=== PATIENT | male | born 1955 | race Caucasian/White ===

== ENCOUNTER 2023-06-18 12:01 | Outpatient (AMB) | payer MEDICARE, MEDICAID, SELFPAY ==
--- NOTE | 2023-06-18 13:56 | AM.OFFWIN_ITS ---
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 Reports left wrist pain and swelling. [facility] Social History Patient Tobacco Use Status: Never used Tobacco Review of Systems Const All systems reviewed & are unremarkable except as noted in HPI and below Physical Exam Vital Signs: Last Vital Signs Temp 97.6 F 06/18/23 14:01 Pulse 73 06/18/23 14:01 BP 122/72 06/18/23 14:01 Pulse Ox 96 06/18/23 14:01 Oxygen Delivery Method Room Air 06/18/23 14:01 BMI result Body Mass Index 37.6 Back/Spine/Pelvis Cervical Spine: normal cervical lordosis, cervical ROM normal and other (limited ROM on Neck due to pain) Extrem Right upper extremity: normal to inspection Left upper extremity: wrist (tenderness, limited ROM due to pain) and hand Details: normal capillary refill, neuromotor exam normal, neurosensory exam normal, tenderness and swelling Assessment & Plan Assessment & Plan (1) Left wrist pain: Code(s): M25.532 - Pain in left wrist Plan: - Xray to r/o Fx - NSAIDs for pain relief. - Alverto bandage and Wrist/hand Brace (2) Cervical muscle pain: Code(s): M54.2 - Cervicalgia Plan: - Chronic issue - F/u With PCP - Warm therapy - Recommended PT Orders: Orders XR wrist LT 2V Today M25.539 - Pain in unspecified wrist Coding Level of Care Code Est Pt Level 3 (56874) Diagnoses Left wrist pain M25.532 Cervical muscle pain M54.2 Time Spent (min) 15
[2023-06-18 14:01] VITALS: BP 122/72; PULSE 73; TEMP 36.4; O2SAT 96; BMI 37.6
== END 2023-06-18 16:16 | disposition home or self-care (01) ==
PROVIDERS: Visit Provider Nurse Practitioner Family
DX: M25.532 Pain in left wrist (principal); M54.2 Cervicalgia
CPT/HCPCS: 99213

== ENCOUNTER 2023-06-18 14:47 | Outpatient (REF) | payer MEDICARE, MEDICAID, SELFPAY ==
--- NOTE | ~2023-06-18 | XR_ITS ---
EXAMINATION: XR WRIST, LEFT CLINICAL INFORMATION: Wrist pain COMPARISON: None available. TECHNIQUE: PA, lateral, oblique, and scaphoid views of the left wrist. FINDINGS: There are marked degenerative changes present at the first CMC joint as well milder degenerative changes at the trapezium/trapezoid joint. Marked vascular calcifications are present. No fractures are seen. No chondrocalcinosis is present. 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 The possibility of the thenar hammer syndrome cannot be excluded. Please correlate with the clinical history.
== END 2023-06-18 14:48 | disposition home or self-care (01) ==
LOC: HO.HMGCX 14:47
PROVIDERS: PCP Internal Medicine; Visit Provider Nurse Practitioner Family
DX: M25.531 Pain in right wrist (principal)
CPT/HCPCS: 73100

== ENCOUNTER 2023-10-14 14:17 | Outpatient (AMB) | payer MEDICARE, SELFPAY ==
[2023-10-14 14:36] VITALS: BP 128/74; PULSE 75; TEMP 36.6; O2SAT 96; BMI 37.6
--- NOTE | 2023-10-14 14:36 | AM.OFFWIN_ITS ---
Intake Vital Signs 10/14/23 14:36 Height 5 ft 6 in Weight 233 lb BMI 37.6 BP 128/74 Blood Pressure Location Rt brachial Position Sitting Pulse 75 Pulse Source Pulse Oximeter Temp 97.9 F Temp Source Temporal Artery Scan Pulse Oximetry (%) 96 Intake Visit Reasons: EP fell on face swelling Intake Note: pt is here for face swelling with bruising due to fall on thursday Patient Tobacco Use Status: Never used Tobacco Allergies No Known Allergies Allergy (Verified 10/14/23 14:40) Do you need a note to return to daycare/school/sports/work: No HPI HPI Comments History of Present Illness Details He was playing [employer] on Thursday and fell/tripped while trying to hit the shuttlecock He fell forward onto face His glasses hit his nose R side black eye Vision without change No LOC R sided neck pain; pain level is 9/10 previously Using ibuprofen which helps until yesterday No other complaints PFSH Social History Patient Tobacco Use Status: Never used Tobacco Review of Systems Const Denies chills, Denies fatigue, Denies fever(s), Denies headache(s) and Denies weakness Eyes Denies blurry vision, Denies change in vision and Denies loss of vision ENT Denies dizziness, Denies otalgia, Denies headache(s), Reports epistaxis (previously which resolved) and Reports nose pain Card Denies chest pain, Denies syncope and Denies dyspnea Resp Denies cough and Denies dyspnea Musc Reports myalgias (R sided neck pain), Denies numbness and Denies tingling Skin/Breast Denies rash Neuro Denies dizziness, Denies syncope, Denies headache(s), Denies loss of vision, Denies numbness, Denies tingling and Denies weakness Endo Denies fatigue Physical Exam Vital Signs: Last Vital Signs Temp 97.9 F 10/14/23 14:36 Pulse 75 10/14/23 14:36 BP 128/74 10/14/23 14:36 Pulse Ox 96 10/14/23 14:36 BMI result Body Mass Index 37.6 General: Non-toxic, NAD. Speaking full sentences. Skin: Warm dry throughout. R inferior eye has dark purple ecchymosis. Obgyn Hospitalist Physician ecchymosis over superior nasal bridge. Well healed small linear approx 0.2cm abrasion to L side of nose. No bleeding. Eye: EOMI without nystagmus, lid lag or entrapment, PERRL HENT: Airway patent. Uvula midline. No pharyngeal erythema or edema. No GAS PRODUCER. No septal hematoma bilaterally Bilateral canals clear. TM non-erythematous, non-bulging. No TM perforation or hemotympanum noted. Neck: No c-spine tenderness. 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 No R clavicular tenderness to palpation. Neurology: A/O x 3. No aphasia or facial droop. Gait without abnormality Psych: Good mood and affect Assessment & Plan Assessment & Plan (1) Strain of right trapezius muscle: Code(s): S46.811A - Strain of other muscles, fascia and tendons at shoulder and upper arm level, right arm, initial encounter Qualifiers: Encounter type: initial encounter Qualified Code(s): S46.811A - Strain of other muscles, fascia and tendons at shoulder and upper arm level, right arm, initial encounter Plan: Cervical neck xray: I viewed degenerative changes xray results pending as of 4:49pm. MA will monitor for results and call with abnormality. There was no dirct c spine tenderness on examination Warm compress Pt is on oxycodone now and will hold off on additional muscle relaxant (2) Nasal contusion: Code(s): S00.33XA - Contusion of nose, initial encounter Qualifiers: Encounter type: initial encounter Qualified Code(s): S00.33XA - Contusion of nose, initial encounter Plan: Nasal bone xray: I viewed + fx, see below (3) Nasal fracture: Code(s): S02.2XXA - Fracture of nasal bones, initial encounter for closed fracture Qualifiers: Encounter type: initial encounter Fracture type: closed Qualified Code(s): S02.2XXA - Fracture of nasal bones, initial encounter for closed fracture Plan: I viewed xray and + nasal bone fx Augmentin to pharmacy ENT referral given and print out handed to pt Ice, tylenol prn Orders: Orders XR cervical spine 3V Today S46.811A - Strain of other muscles, fascia and tendons at shoulder and upper arm level, right arm, initial encounter XR nasal bones min 3V Today S00.33XA - Contusion of nose, initial encounter, S46.811A - Strain of other muscles, fascia and tendons at shoulder and upper arm level, right arm, initial encounter Referrals Ear/Nose/Throat Referral S02.2XXA - Fracture of nasal bones, initial encounter for closed fracture Medications: New amoxicillin-pot clavulanate 875-125 mg 1 tab PO BID 14 tabs 0RF Coding Level of Care Code Est Pt Level 3 (31967) Diagnoses Strain of right trapezius muscle, initial encounter S46.811A Encounter type: initial encounter Contusion of nose, initial encounter S00.33XA Encounter type: initial encounter Closed fracture of nasal bone, initial encounter S02.2XXA Encounter type: initial encounter Fracture type: closed
== END 2023-10-14 16:12 | disposition home or self-care (01) ==
PROVIDERS: PCP Internal Medicine; Visit Provider Physician Assistant
DX: S46.811A Strain of other muscles, fascia and tendons at shoulder and upper arm level, right arm, initial encounter (principal); S00.33XA Contusion of nose, initial encounter; S02.2XXA Fracture of nasal bones, initial encounter for closed fracture
CPT/HCPCS: 99213

== ENCOUNTER 2023-10-14 14:51 | Outpatient (REF) | payer MEDICARE, SELFPAY ==
--- NOTE | ~2023-10-14 | XR_ITS ---
EXAMINATION: XR CERVICAL SPINE CLINICAL INFORMATION: Strain of muscle COMPARISON: None available. TECHNIQUE: 3 views of the cervical spine were obtained. FINDINGS: Degenerative changes are present at C6-C7 with disc space narrowing. Endplate osteophytes are present from the inferior of the C4 endplate downwards. No soft tissue swelling. No compression fractures or subluxations are identified. Alignment is maintained at the atlanto-axial articulation. The prevertebral soft tissues are normal. XR/XR cervical spine 3V IMPRESSION: Degenerative changes in the cervical spine as described above.
--- NOTE | ~2023-10-14 | XR_ITS ---
EXAMINATION: XR NASAL BONES CLINICAL INFORMATION: Contusion of nose COMPARISON: None available. TECHNIQUE: 3 views of the nasal bones were obtained. FINDINGS: There is a nondisplaced transverse fracture through the nasal bones. No other fractures are seen. The paranasal sinuses are well-aerated and appear unremarkable. XR/XR nasal bones min 3V IMPRESSION: Nondisplaced nasal bone fracture.
== END 2023-10-14 14:52 | disposition home or self-care (01) ==
LOC: HO.HMGCX 14:51
PROVIDERS: Visit Provider Physician Assistant
DX: S46.811A Strain of other muscles, fascia and tendons at shoulder and upper arm level, right arm, initial encounter (principal); S00.33XA Contusion of nose, initial encounter
CPT/HCPCS: 70160; 72040